=== PATIENT | female | born 1995 | race Two or more races ===

== ENCOUNTER 2016-06-29 17:06 | Emergency (ER) | payer SELFPAY ==
[2016-06-29 17:32] VITALS: BP 94/65
== END 2016-06-29 19:17 | disposition home or self-care (01) ==
LOC: ED 17:06
DX: S80.862A Insect bite (nonvenomous), left lower leg, initial encounter (principal); S80.861A Insect bite (nonvenomous), right lower leg, initial encounter; J45.909 Unspecified asthma, uncomplicated; W57.XXXA Bitten or stung by nonvenomous insect and other nonvenomous arthropods, initial encounter; Y93.89 Activity, other specified; Y99.8 Other external cause status; Y92.89 Other specified places as the place of occurrence of the external cause; Z88.0 Allergy status to penicillin
CPT/HCPCS: J1100